=== PATIENT | female | born 1985 | race Caucasian/White ===

== ENCOUNTER 2016-05-29 15:58 | Emergency (ER) | payer OTHER ==
[2016-05-29 17:27] VITALS: O2SAT 96
[2016-05-29] MEDS ORDERED: IBUPROFEN 200 MG TAB PO ONE ×2 (17:29→17:32)
--- NOTE | 2016-05-29 17:47 | UCPHY ---
[id number]/ 17:25 HPI/ROS: CHIEF COMPLAINT: Thoracic lumbar back pain post mechanical fall HISTORY OF PRESENT ILLNESS: 30-year-old female states that while at work last night she was backing up and sustained a purely mechanical fall landing on her right hip. No immediate complaints of pain however today she woke with upper lumbar lower thoracic back pain which is reproducible with range of motion. No hip or pelvic pain. No inferior buttock pain. No incontinence or retention. No saddle anesthesia. No head injury. Not a syncopal episode. PRIMARY CARE PROVIDER: REVIEW OF SYSTEMS: A ten point review of systems was performed and is negative with the exception of the items mentioned in the HPI PAST MEDICAL & SURGICAL HISTORY: No pertinent medical or surgical history SOCIAL HISTORY: nonsmoker PHYSICAL EXAM (Prior to examination, patient consented to physical exam, hands were washed and my usual and customary physical exam procedures followed) 1) GENERAL: Well-developed, well-nourished, alert and oriented. Appears nontoxic . 2) HEAD: Normocephalic, atraumatic 3) HEENT: Pupils equal, round, reactive to light bilaterally. No raccoon eyes no Parisi sign 4) NECK: Full range of motion, no midline C-spine pain 5) LUNGS: Clear auscultation bilaterally, no wheezes, no rhonchi, no retractions. 6) HEART: Regular rate and rhythm, no murmur, no heave, no gallop. 7) ABDOMEN: No guarding, no rebound, no focal tenderness, 8) MUSCULOSKELETAL: Pelvis, inferior buttock, bilateral hips nontender. Full weight-bearing. Observed squatting with no visible pain Moving all extremities , no focal areas of tenderness, no obvious trauma. No peripheral edema or discoloration. 9) BACK: Unable to complete differentiate true midline versus just lateral of midline pain in the lower thoracic and upper lumbar region. No visible signs of trauma.. No CVA tenderness, no midline vertebral tenderness, no fluctuance, no step-off, no obvious trauma, no visual or palpable abnormality. Patella, Achilles reflexes intact to bilateral strength 5/5 10) SKIN: No rash, no petechiae. 11) NEURO: Awake, alert, and oriented to person, place and time. Answers questions appropriately. There were no obvious focal neurologic abnormalities. Upper and lower extremities bilaterally with strength 5 / 5, reflexes 2+.. DIFFERENTIAL DIAGNOSIS: In no particular order, including but not limited to, fracture, sprain/strain, cauda equina, spinal infectious etiology. MEDICAL DECISION MAKING Lower index of suspicion for cauda equina, epidural abscess, epidural hematoma, lumbar myositis, diskitis, as the patient is neurologically intact in the lower extremities, has patella and Achilles reflexes intact and equal bilaterally, has no neurologic deficits, no incontinence, no retention, no midline pain, no fluctuance, afebrile, no flulike symptoms. Pain may be secondary to muscular strain, may be secondary to discogenic etiology. At this point I do not identify definitive indication for emergent MRI, however patient may necessitate this on an outpatient basis. Usual and customary low back pain precautions instructions provided. (Pete Gomez) Constitutional: Initial Vital Signs Temperature (C) 36.6 C 05/29/16 17:20 Heart Rate 80 05/29/16 17:20 Respiratory Rate 16 05/29/16 17:20 Blood Pressure 114/77 05/29/16 17:20 O2 Sat (%) 96 05/29/16 17:20 O2 Delivery Mode Room Air Allergies/Adverse Reactions: No Known Allergies Allergy (Verified 05/29/16 17:19) Home Medications: Medication Instructions Recorded Cyclobenzaprine [Flexeril 10 MG 10 mg PO TID #15 tab 05/29/16 (RX)] MDM/Departure - MDM Diagnostics: IXray of the thoracic and lumbar spine interpreted by myself: no definitive acute osseous abnormality (Pete Gomez) Medications Given: Discontinued Medications Ibuprofen (Motrin) 600 mg PO EDNOW ONE Stop: 05/29/16 17:30 Last Admin: 05/29/16 17:35 Dose: 600 mg ED Course/Re-evaluation: Urgent Care PA supervision Physician documentation: The patient was evaluated and managed by the physician chiropractor assistant. My co- signature indicates that I have reviewed this chart and I agree with the findings and plan of care as documented. I am the secondary supervising physician. (German Singleton) - Depart Disposition: Home, Routine, Self-Care Clinical Impression: Thoracic back sprain Qualifiers: Encounter type: initial encounter Qualifier Code: (S23.9XXA) Sprain of unspecified parts of thorax, initial encounter Lumbar back sprain Qualifiers: Encounter type: initial encounter Qualifier Code: (S33.5XXA) Sprain of ligaments of lumbar spine, initial encounter Condition: Good Instructions: Low Back Strain (GEN) Additional Instructions: Seek medical attention if you develop new or worsening pain, if you develop bladder or bowel dysfunction, numbness around your perineum, foot drop, or any other symptoms that concern you. Stand Alone Forms: Work Limited Duty, Work Comp Follow Up Prescriptions: Cyclobenzaprine [Flexeril 10 MG (RX)] 10 mg PO TID #15 tab Referrals: Follow-up, with your work comp provider in 2-3 days [Other] - As per Instructions - PQRS PQRS Measurement: Not applicable (Pete Gomez)
[2016-05-29 18:57] VITALS: BP 118/64; PULSE 82; RESP 18; TEMP 98.6
--- NOTE | 2016-05-29 19:21 | DX ---
Lumbar spine, 2 views. HISTORY: Pain after trauma. FINDINGS: Mild lumbar dextroscoliosis. No fracture or subluxation. IMPRESSION: Negative for fracture.
--- NOTE | 2016-05-29 19:21 | DX ---
Thoracic spine, 3 views. HISTORY: Pain after fall. FINDINGS: No fracture or subluxation. Disk spaces are maintained. Mild lower thoracic levoscoliosis. IMPRESSION: Negative for acute traumatic injury.
== END 2016-05-29 19:02 | disposition home or self-care (01) ==
LOC: CED 15:58
DX: S23.9XXA Sprain of unspecified parts of thorax, initial encounter (principal); S33.5XXA Sprain of ligaments of lumbar spine, initial encounter; W19.XXXA Unspecified fall, initial encounter
CPT/HCPCS: 72070-PO; 72100-PO; G0463-PO